=== PATIENT | male | born 1935 | race Caucasian/White ===

== ENCOUNTER → 2017-06-08 | Outpatient (CLI) | payer OTHER | END | disposition home or self-care (01) | LOC: RD 15:34 | PROC: B54DZZZ Ultrasonography of Bilateral Lower Extremity Veins (ICD-10-PCS; principal; 2017-06-08) | PROC: B44HZZZ Ultrasonography of Bilateral Lower Extremity Arteries (ICD-10-PCS; 2017-06-08) | DX: E11.9 Type 2 diabetes mellitus without complications (principal); R09.89 Other specified symptoms and signs involving the circulatory and respiratory systems ==

== ENCOUNTER → 2017-12-29 | Outpatient (CLI) | payer OTHER | END | disposition home or self-care (01) | LOC: LB 09:41 | DX: R06.02 Shortness of breath (principal) | CPT/HCPCS: 36600 ==

== ENCOUNTER 2017-12-31 11:00 | Inpatient (IN) | payer OTHER ==
[~2017-12-31] VITALS: Ht 170.2 cm; Wt 105.7 kg
[2017-12-31] VITALS (9 sets, daily range): BP systolic 92–118; BP diastolic 45–59
[2017-12-31] MEDS ORDERED: K-TAB20 MEQ PO (12:08)
[2017-12-31] MEDS ORDERED: CARVEDILOL25 M1 PO (12:09)
[2017-12-31] MEDS ORDERED: LASIX40 MG PO (12:09)
[2017-12-31] MEDS ORDERED: NATURE'S BLEND500 M3 PO (12:09)
[2017-12-31] MEDS ORDERED: AMARYL4 MG PO (12:09)
[2017-12-31] MEDS ORDERED: LYRICA50 M1 PO (12:10)
[2017-12-31] MEDS ORDERED: TAMSULOSIN HYD0.4 M1 PO (12:10)
[2017-12-31] MEDS ORDERED: MOT600 PO (12:11)
[2017-12-31] MEDS ORDERED: AMBIEN5 MG PO (12:11)
[2017-12-31] MEDS ORDERED: CRESTOR5 M1 PO (12:11)
[2017-12-31] MEDS ORDERED: ASPIR 8181 MG PO (12:12)
[2017-12-31] MEDS ORDERED: KEFLEX250 M1 PO (12:13)
[2017-12-31] MEDS ORDERED: LORAZEPAM0.5 MG PO (12:13)
[2017-12-31] MEDS ORDERED: DIOVAN40 MG PO (12:14)
[2017-12-31] MEDS ORDERED: PROTONIX20 MG PO (12:16)
[2017-12-31 12:26] LABS: BASOPHIL % 0.4 % (0-2); PLATELET COUNT 172 x10^3mcL (130-400)
[2017-12-31 12:40] LABS: RED CELL DISTRIBUTION WIDTH 16.5 % (11.5-14.5)
[2017-12-31 12:54] LABS: CK-MB 1.7 ng/mL (0-3.6)
[2017-12-31 13:50] LABS: FREE T4 0.99 ng/dL (0.76-1.46); FREE THYROXINE INDEX 2.4 ug/dL (1.4-4.5); T4(THYROXINE) 6.1 ug/dL (4.7-13.3)
[2017-12-31 13:53] LABS: T3 TOTAL 0.53 ng/mL
[2017-12-31 14:26] LABS: ALBUMIN 3.1 g/dL (3.4-5.0); ALKALINE PHOSPHATASE 59 U/L (46-116); ALT/SGPT 21 U/L (16-63); AST/SGOT 25 U/L (15-37); BILIRUBIN TOTAL 0.28 mg/dL (0.20-1.00); C REACTIVE PROTEIN 6.6 mg/dL (<=0.9); CALCIUM 8.6 mg/dL (8.5-10.1); CARBON DIOXIDE 28.9 mmol/L (21-32); CHLORIDE SERUM 102 mmol/L (98-107); CREATININE SERUM 2.5 mg/dL (0.7-1.3); GLUCOSE SERUM 199 mg/dL (74-106); POTASSIUM SERUM 4.8 mmol/L (3.5-5.1); SODIUM SERUM 142 mmol/L (136-145); TOTAL PROTEIN, SERUM 7.1 g/dL (6.4-8.2)
[2017-12-31 14:28] LABS: ERYTHROCYTE SED RATE 66 mm/hr (0-20)
[2017-12-31 15:17] LABS: CHOLESTEROL/HDL RATIO 2.8
[2018-01-01] VITALS (17 sets, daily range): BP systolic 102–131; BP diastolic 50–89; Ht 170.2 cm; Wt 105.7 kg
[2018-01-01 05:23] LABS: BASOPHIL % 0 % (0-2); PLATELET COUNT 160 x10^3mcL (130-400); RED CELL DISTRIBUTION WIDTH 16.1 % (11.5-14.5)
[2018-01-01 05:34] LABS: CALCIUM 8.3 mg/dL (8.5-10.1); CARBON DIOXIDE 28.6 mmol/L (21-32); CHLORIDE SERUM 102 mmol/L (98-107); GLUCOSE SERUM 189 mg/dL (74-106); MAGNESIUM 1.8 mg/dL (1.8-2.4); PHOSPHOROUS 3.5 mg/dL (2.5-4.9); SODIUM SERUM 141 mmol/L (136-145)
[2018-01-02] VITALS (12 sets, daily range): BP systolic 109–135; BP diastolic 54–77
[2018-01-02 05:22] LABS: PLATELET COUNT 177 x10^3mcL (130-400)
[2018-01-02 05:26] LABS: RED CELL DISTRIBUTION WIDTH 16.2 % (11.5-14.5)
[2018-01-02 05:27] LABS: BASOPHIL % 0 % (0-2)
[2018-01-02 07:01] LABS: CALCIUM 8.8 mg/dL (8.5-10.1); CARBON DIOXIDE 26.8 mmol/L (21-32); CHLORIDE SERUM 103 mmol/L (98-107); GLUCOSE SERUM 300 mg/dL (74-106); MAGNESIUM 2.3 mg/dL (1.8-2.4); PHOSPHOROUS 4.1 mg/dL (2.5-4.9); SODIUM SERUM 143 mmol/L (136-145)
[2018-01-03] VITALS (7 sets, daily range): BP systolic 93–125; BP diastolic 46–66
[2018-01-03 05:24] LABS: PLATELET COUNT 171 x10^3mcL (130-400)
[2018-01-03 05:25] LABS: BASOPHIL % 0 % (0-2); RED CELL DISTRIBUTION WIDTH 15.9 % (11.5-14.5)
[2018-01-03 05:31] LABS: CALCIUM 8.2 mg/dL (8.5-10.1); CARBON DIOXIDE 32.3 mmol/L (21-32); CHLORIDE SERUM 104 mmol/L (98-107); CREATININE SERUM 1.6 mg/dL (0.7-1.3); GLUCOSE SERUM 227 mg/dL (74-106); POTASSIUM SERUM 4.1 mmol/L (3.5-5.1); SODIUM SERUM 143 mmol/L (136-145)
[2018-01-04 06:07] VITALS: BP 94/59
[2018-01-04 06:57] LABS: BASOPHIL % 0.1 % (0-2); PLATELET COUNT 196 x10^3mcL (130-400)
[2018-01-04 06:59] LABS: RED CELL DISTRIBUTION WIDTH 15.7 % (11.5-14.5)
[2018-01-04 07:25] LABS: CALCIUM 8.1 mg/dL (8.5-10.1); CARBON DIOXIDE 30.1 mmol/L (21-32); CHLORIDE SERUM 104 mmol/L (98-107); CREATININE SERUM 1.7 mg/dL (0.7-1.3); GLUCOSE SERUM 161 mg/dL (74-106); SODIUM SERUM 144 mmol/L (136-145)
[2018-01-04 09:30] VITALS: BP 91/53
[2018-01-04 09:45] VITALS: BP 84/48
[2018-01-04] MEDS ORDERED: CLEOCIN HCL300 MG PO (15:32)
[2018-01-04] MEDS ORDERED: LEVOFLOXACIN500 M1 PO (15:32)
[2018-01-04] MEDS ORDERED: LAC PO (15:35)
[2018-01-04 16:09] VITALS: BP 100/56; BP 84/48
== END 2018-01-04 19:25 | disposition home health service (06) | DRG 208 ==
LOC: ED 11:00 → MU 13:38 → DU 13:38 → IC 13:38 → DU 15:30 → IC 16:28 → DU 16:39 → IC 16:40 → DU 01-03 13:31 → MU 01-04 09:09
PROVIDERS: Family Medicine; Specialist
PROC: 0BH17EZ Insertion of Endotracheal Airway into Trachea, Via Natural or Artificial Opening (ICD-10-PCS; principal; 2017-12-31)
PROC: 5A1945Z Respiratory Ventilation, 24-96 Consecutive Hours (ICD-10-PCS; 2017-12-31)
PROC: 02HV33Z Insertion of Infusion Device into Superior Vena Cava, Percutaneous Approach (ICD-10-PCS; 2017-12-31)
PROC: B548ZZA Ultrasonography of Superior Vena Cava, Guidance (ICD-10-PCS; 2017-12-31)
PROC: 5A09357 Assistance with Respiratory Ventilation, Less than 24 Consecutive Hours, Continuous Positive Airway Pressure (ICD-10-PCS; 2018-01-02)
DX: J96.21 Acute and chronic respiratory failure with hypoxia (principal); J18.9 Pneumonia, unspecified organism; N17.0 Acute kidney failure with tubular necrosis; J44.1 Chronic obstructive pulmonary disease with (acute) exacerbation; J44.0 Chronic obstructive pulmonary disease with (acute) lower respiratory infection; E44.0 Moderate protein-calorie malnutrition; K57.32 Diverticulitis of large intestine without perforation or abscess without bleeding; Z68.41 Body mass index [BMI] 40.0-44.9, adult; J96.22 Acute and chronic respiratory failure with hypercapnia; N18.9 Chronic kidney disease, unspecified; E11.22 Type 2 diabetes mellitus with diabetic chronic kidney disease; E11.65 Type 2 diabetes mellitus with hyperglycemia; E83.39 Other disorders of phosphorus metabolism; R14.0 Abdominal distension (gaseous); E83.51 Hypocalcemia; I12.9 Hypertensive chronic kidney disease with stage 1 through stage 4 chronic kidney disease, or unspecified chronic kidney disease; E66.9 Obesity, unspecified; E11.40 Type 2 diabetes mellitus with diabetic neuropathy, unspecified; Z87.891 Personal history of nicotine dependence
CPT/HCPCS: 36556; 36600; 82962; 83880; 84439; 87804; 97110-GP; 97116-GP; 97530-GP; A4628; C9113; J1642; J1815; J1940; J1956; J2060; J2250; J2920; J2930; J3010; J3490; J7030; J7613; J7620; J7633; J7644; Q0092

== ENCOUNTER → 2018-07-27 | Outpatient (CLI) | payer OTHER ==
[~2018-07-27] MED LIST: AMARYL4 MG PO; AMBIEN5 MG PO; ASPIR 8181 MG PO; CARVEDILOL25 M1 PO; CLEOCIN HCL300 MG PO; CRESTOR5 M1 PO; DIOVAN40 MG PO; K-TAB20 MEQ PO; KEFLEX250 M1 PO; LAC PO; LASIX40 MG PO; LEVOFLOXACIN500 M1 PO; LORAZEPAM0.5 MG PO; LYRICA50 M1 PO; MOT600 PO; NATURE'S BLEND500 M3 PO; PROTONIX20 MG PO; TAMSULOSIN HYD0.4 M1 PO
== END | disposition home or self-care (01) ==
LOC: RD 10:47
DX: J41.0 Simple chronic bronchitis (principal)

== ENCOUNTER → 2019-02-06 | Outpatient (CLI) | payer OTHER | END | disposition home or self-care (01) | LOC: RD 10:08 | DX: R91.8 Other nonspecific abnormal finding of lung field (principal) ==

== ENCOUNTER → 2019-08-04 | Outpatient (CLI) | payer OTHER | END | disposition home or self-care (01) | LOC: RD 10:05 | DX: L03.115 Cellulitis of right lower limb (principal) ==

== ENCOUNTER → 2019-08-31 | Outpatient (CLI) | payer OTHER | END | disposition home or self-care (01) | LOC: RD 09:59 | DX: L03.90 Cellulitis, unspecified (principal); L03.115 Cellulitis of right lower limb ==